=== PATIENT | male | born 1945 | race Caucasian/White ===

== ENCOUNTER 2021-11-17 10:01 | Emergency (ER) | payer MEDICARE ==
[2021-11-17 11:38] LABS: BASOPHIL 1.2 % (0-2); EOSINOPHIL 5.8 % (0-7); HCT 34.4 % (42.0-52.0); LYMPHOCYTE 21.8 % (15-48); MCH 29.6 pg (25.0-31.0); MCV 92.5 fL (78.0-100.0); MONOCYTE 10.8 % (0-12); MPV 10.3 fL (6.0-9.5); NEUTROPHIL 60.2 % (41-80); NRBC 0; PLT 184 K/uL (150-400); RBC 3.72 M/uL (4.70-6.00); WBC 4.2 K/uL (4.0-10.5)
[2021-11-17 11:43] LABS: INR 2.31 (0.9-1.2); PROTHROMBIN TIME 24.6 SECONDS (11.9-13.9); PTT 43.5 SECONDS (24.9-34.6)
[2021-11-17 11:49] LABS: ALBUMIN 3.6 g/dL (3.4-5.0); BILIRUBIN - TOTAL 1.3 mg/dL (0.2-1.0); BUN/CREAT RATIO (CALC) 19.3 RATIO; CREATININE 0.88 mg/dL (0.67-1.17); GLOBULIN (CALCULATION) 3.9 g/dL; POTASSIUM 3.8 mmol/L (3.5-5.1); TOTAL PROTEIN 7.5 g/dL (6.4-8.2)
[2021-11-17 12:12] LABS: LACTIC ACID 1.2 mmol/L (0.4-1.9)
[2021-11-17 12:19] LABS: CLARITY HAZY (CLEAR); COLOR AMBER (YELLOW)
[2021-11-17 12:20] LABS: BILIRUBIN NEGATIVE (NEGATIVE); BLOOD NEGATIVE Ery/uL (NEGATIVE); GLUCOSE (U) NORMAL (NORMAL); PROTEIN TRACE (LOW) mg/dL (NEGATIVE); SPECIFIC GRAVITY 1.025 (1.001-1.030)
[2021-11-17 12:21] LABS: LEUKOCYTES TRACE Leu/uL (NEGATIVE); NITRITE NEGATIVE (NEGATIVE)
[2021-11-17 12:29] LABS: URINARY RBC RARE
== END 2021-11-17 15:09 | disposition home or self-care (01) ==
LOC: FER 10:01
PROVIDERS: Emergency Medicine
DX: K42.9 Umbilical hernia without obstruction or gangrene (principal); K74.60 Unspecified cirrhosis of liver; R18.8 Other ascites; I48.91 Unspecified atrial fibrillation; I11.0 Hypertensive heart disease with heart failure; I50.9 Heart failure, unspecified; E78.5 Hyperlipidemia, unspecified; Z98.890 Other specified postprocedural states; Z90.49 Acquired absence of other specified parts of digestive tract; Z79.01 Long term (current) use of anticoagulants
CPT/HCPCS: 36415; 71045; 80053; 81001; 83605; 85025; 85610; 85730; 93005; J2270; J2405; Q9967